=== PATIENT | female | born 1995 | race African-American/Black ===

== ENCOUNTER 2016-05-27 00:16 | Emergency (ER) | payer MEDICAID, OTHER ==
[2016-05-27] VITALS (8 sets, daily range): BP systolic 86–114; BP diastolic 51–68; PULSE 90–116; RESP 14–16; TEMP 98.1; O2SAT 95–97
[~2016-05-27] VITALS: Ht 154.9 cm; Wt 54.0 kg
[2016-05-27] MEDS ORDERED: prenatal vitamin PO (05:56)
[2016-05-27 06:08] LABS: MEAN CORPUSCULAR HGB CONC 36.2 % (32.0-36.0)
[2016-05-27] MEDS ORDERED: SODIUM CHLOR 0.9% 1000 ML INJ 1,000 ML IV ONE ×3 (06:15→08:00)
[2016-05-27 06:22] LABS: AUTOMATED NEUTROPHIL # 4.2 TH/MM3 (1.8-7.7); BASOPHIL % 0.2 % (0.0-2.0); EOSINOPHIL % 0.6 % (0.0-4.0); HEMATOCRIT 40.6 % (35.0-46.0); LYMPH % 32.3 % (9.0-44.0); LYMPHOCYTE # 2.5 TH/MM3 (1.0-4.8); MEAN CORPUSCULAR HEMOGLOBIN 31.2 PG (27.0-34.0); MONO % 12.5 % (0.0-8.0); NEUT % 54.4 % (16.0-70.0); PLATELET COUNT 244 TH/MM3 (150-450); RED BLOOD COUNT 4.72 MIL/MM3 (4.00-5.30); RED CELL DISTRIBUTION WIDTH 12.5 % (11.6-17.2); WHITE BLOOD COUNT 7.6 TH/MM3 (4.0-11.0)
[2016-05-27 06:26] LABS: HEMO FLAGS AUTO DIFF
[2016-05-27 06:52] LABS: SCAN/DIFF AUTO DIFF CONFIRMED
[2016-05-27 07:02] LABS: ANION GAP 13 MEQ/L (5-15); AST (GOT) 23 U/L (16-38); BICARBONATE 22.3 MEQ/L (21.0-32.0); BLOOD UREA NITROGEN 10 MG/DL (7-18); CHLORIDE 97 MEQ/L (98-107); GLOMERULAR FILTRATION RATE 117 ML/MIN (>89); POTASSIUM 3.5 MEQ/L (3.5-5.1); SODIUM (NA) 132 MEQ/L (136-145)
[2016-05-27 07:03] LABS: ALKALINE PHOSPHATASE 73 U/L (45-117); ALT (GPT) 36 U/L (9-42); BETA HCG QUANT 71410 MIU/ML (0-5); TOTAL BILIRUBIN ADULT 1.9 MG/DL (0.2-1.0)
--- NOTE | 2016-05-27 07:03 | PD ---
HPI Chief Complaint: Related Problem Time Seen by Provider: 06:05 Travel History International Travel<30 days: No Contact w/Intl Traveler<30days: No Traveled to known affect area: No History of Present Illness HPI 21 year-old female presents to the emergency department by private transportation for daily nausea and vomiting over the past 4-5 weeks. Patient estimates she is 10 weeks . Last menstrual period was March. Patient is 2 para 0 AB 1. Patient denies any abdominal pain pelvic pain vaginal discharge or vaginal bleeding dysuria frequency urgency or hematuria. Patient reports that she feels very dehydrated. Patient has followed up with local clinic but has not been yet seen by intraoperative neuro tech or an OB /BIG MACHINE CONSULTANT. Patient has been taking vitamins. Patient is at school here at the [employer] [facility] and plans to return to home in [place] in July and establishing with an EXHIBIT DESIGNER at that time. Patient has not visited the [facility] for evaluation. Patient was not given any medications for nausea vomiting at the local [facility]. Patient states she's been attempting to take sips of Gatorade and lynn bassem but continues to have vomiting. No hematemesis no coffee-ground emesis. No abdominal pain. No fever or chills. Patient does not know she's had any weight loss. PFSH Past Medical History Narrative Medical Ab1 no tobacco use nursing notes reviewed Medical History: Denies Significant Hx Immunizations Current: Yes Influenza Vaccination: No ?: LMP: 04/01/16 : 2 : 1 Past Surgical History Surgical History: No Previous Surgery Social History Alcohol Use: No Tobacco Use: No Substance Use: Yes Allergies-Medications (Allergen,Severity, Reaction): Coded Allergies: No Known Allergies (Unverified , 05/27/16) Reported Meds & Prescriptions Reported Meds & Active Scripts Active Reported [ vitamin] 1 Tab PO DAILY Review of Systems Except as stated in HPI: all other systems reviewed are Neg General / Constitutional: No: Fever, Chills Eyes: No: Visual changes HENT: Positive: Lightheadedness, No: Headaches Cardiovascular: No: Chest Pain or Discomfort Respiratory: No: Shortness of Breath Gastrointestinal: Positive: Nausea, Vomiting, No: Abdominal Pain, Hematemesis , Hematochezia Genitourinary: No: Dysuria Musculoskeletal: No: Myalgias, Arthralgias Skin: No Rash Neurologic: Positive: Dizziness, No: Weakness Psychiatric: No: Anxiety, Depression Hematologic/Lymphatic: No: Easy Bruising Physical Exam Narrative GENERAL: Well-developed well-nourished female in no acute distress no respiratory distress SKIN: Warm and dry. HEAD: Normocephalic. EYES: No scleral icterus. No injection or drainage. ENT: Mucous membranes dry NECK: Supple, trachea midline. No JVD or lymphadenopathy. CARDIOVASCULAR: Regular rate and rhythm without murmurs, gallops, or rubs. RESPIRATORY: Breath sounds equal bilaterally. No accessory muscle use. GASTROINTESTINAL: Abdomen soft, non-tender, nondistended. MUSCULOSKELETAL: No cyanosis, or edema. BACK: Nontender without obvious deformity. No CVA tenderness. Data Data Last Documented VS Vital Signs Date Time Temp Pulse Resp B/P Pulse Ox O2 Delivery O2 Flow Rate FiO2 05/27/16 06:04 91 14 100/68 95 Room Air 05/27/16 00:19 98.1 Orders Beta Hcg (Quant/Titer) (05/27/16 06:05) Complete Blood Count With Diff (05/27/16 06:05) Comprehensive Metabolic Panel (05/27/16 06:05) Complete Rh (05/27/16 06:05) Us Pelvis (Ques Pr/Ect)W Trans (05/27/16 ) Urinalysis - C+S If Indicated (05/27/16 06:05) Iv Access Insert/Monitor (05/27/16 06:05) Ed Urine Pregnancytest Poc (05/27/16 06:05) Sodium Chlor 0.9% 1000 Ml Inj (Ns 1000 M (05/27/16 06:15) Sodium Chlor 0.9% 1000 Ml Inj (Ns 1000 M (05/27/16 07:15) Labs Laboratory Tests Test 05/27/16 06:00 White Blood Count 7.6 TH/MM3 Red Blood Count 4.72 MIL/MM3 Hemoglobin 14.7 GM/DL Hematocrit 40.6 % Mean Corpuscular Volume 86.0 FL Mean Corpuscular Hemoglobin 31.2 PG Mean Corpuscular Hemoglobin 36.2 % Concent Red Cell Distribution Width 12.5 % Platelet Count 244 TH/MM3 Mean Platelet Volume 11.5 FL Neutrophils (%) (Auto) 54.4 % Lymphocytes (%) (Auto) 32.3 % Monocytes (%) (Auto) 12.5 % Eosinophils (%) (Auto) 0.6 % Basophils (%) (Auto) 0.2 % Neutrophils # (Auto) 4.2 TH/MM3 Lymphocytes # (Auto) 2.5 TH/MM3 Monocytes # (Auto) 1.0 TH/MM3 Eosinophils # (Auto) 0.0 TH/MM3 Basophils # (Auto) 0.0 TH/MM3 CBC Comment AUTO DIFF Differential Comment AUTO DIFF CONFIRMED Sodium Level 132 MEQ/L Potassium Level 3.5 MEQ/L Chloride Level 97 MEQ/L Carbon Dioxide Level 22.3 MEQ/L Anion Gap 13 MEQ/L Blood Urea Nitrogen 10 MG/DL Creatinine 0.76 MG/DL Estimat Glomerular Filtration 117 ML/MIN Rate Random Glucose 75 MG/DL Calcium Level 9.5 MG/DL Total Bilirubin 1.9 MG/DL Aspartate Amino Transf 23 U/L (AST/SGOT) Alanine Aminotransferase 36 U/L (ALT/SGPT) Alkaline Phosphatase 73 U/L Total Protein 9.5 GM/DL Albumin 4.2 GM/DL Human Chorionic Gonadotropin, 77018 MIU/ML Quant Blood Type AB POSITIVE Rho(D) Type POSITIVE MDM Medical Decision Making Medical Screen Exam Complete: Yes Emergency Medical Condition: Yes Medical Record Reviewed: Yes Interpretation(s) CBC with automated differential values grossly within normal limits [id number] hCG positive Differential Diagnosis Vomiting, hyperemesis gravidarum, , ectopic , electrolyte disturbance, dehydration Narrative Course IV access obtained patient administered 1 L normal saline specimens collected and sent for resulting; pelvic ultrasound ordered Patient receiving IV fluids keeping hypotensive blood pressure with normal heart rate range. Patient given additional liter of normal saline; urinalysis pending; chemistries pending; quantitative hCG pending @ 0700 sign over care to Lizzy Cornelius MD May 27, 2016 07:03
--- NOTE | 2016-05-27 08:01 | PD ---
Physical Exam Date Seen by Provider: May 27, 2016 Data Data Last Documented VS Vital Signs Date Time Temp Pulse Resp B/P Pulse Ox O2 Delivery O2 Flow Rate FiO2 05/27/16 08:00 96 16 89/56 97 Room Air 05/27/16 00:19 98.1 Orders Beta Hcg (Quant/Titer) (05/27/16 06:05) Complete Blood Count With Diff (05/27/16 06:05) Comprehensive Metabolic Panel (05/27/16 06:05) Complete Rh (05/27/16 06:05) Urinalysis - C+S If Indicated (05/27/16 06:05) Iv Access Insert/Monitor (05/27/16 06:05) Ed Urine Pregnancytest Poc (05/27/16 06:05) Sodium Chlor 0.9% 1000 Ml Inj (Ns 1000 M (05/27/16 06:15) Sodium Chlor 0.9% 1000 Ml Inj (Ns 1000 M (05/27/16 07:15) Sodium Chlor 0.9% 1000 Ml Inj (Ns 1000 M (05/27/16 08:00) Us Pelvis (Ques Preg/Ectopic) (05/27/16 ) Urine Culture (05/27/16 12:20) Ceftriaxone Inj (Rocephin Inj) (05/27/16 13:15) Labs Laboratory Tests Test 05/27/16 05/27/16 06:00 12:20 White Blood Count 7.6 TH/MM3 Red Blood Count 4.72 MIL/MM3 Hemoglobin 14.7 GM/DL Hematocrit 40.6 % Mean Corpuscular Volume 86.0 FL Mean Corpuscular Hemoglobin 31.2 PG Mean Corpuscular Hemoglobin 36.2 % Concent Red Cell Distribution Width 12.5 % Platelet Count 244 TH/MM3 Mean Platelet Volume 11.5 FL Neutrophils (%) (Auto) 54.4 % Lymphocytes (%) (Auto) 32.3 % Monocytes (%) (Auto) 12.5 % Eosinophils (%) (Auto) 0.6 % Basophils (%) (Auto) 0.2 % Neutrophils # (Auto) 4.2 TH/MM3 Lymphocytes # (Auto) 2.5 TH/MM3 Monocytes # (Auto) 1.0 TH/MM3 Eosinophils # (Auto) 0.0 TH/MM3 Basophils # (Auto) 0.0 TH/MM3 CBC Comment AUTO DIFF Differential Comment AUTO DIFF CONFIRMED Sodium Level 132 MEQ/L Potassium Level 3.5 MEQ/L Chloride Level 97 MEQ/L Carbon Dioxide Level 22.3 MEQ/L Anion Gap 13 MEQ/L Blood Urea Nitrogen 10 MG/DL Creatinine 0.76 MG/DL Estimat Glomerular Filtration 117 ML/MIN Rate Random Glucose 75 MG/DL Calcium Level 9.5 MG/DL Total Bilirubin 1.9 MG/DL Aspartate Amino Transf 23 U/L (AST/SGOT) Alanine Aminotransferase 36 U/L (ALT/SGPT) Alkaline Phosphatase 73 U/L Total Protein 9.5 GM/DL Albumin 4.2 GM/DL Human Chorionic Gonadotropin, 00996 MIU/ML Quant Blood Type AB POSITIVE Rho(D) Type POSITIVE Urine Color YELLOW Urine Turbidity HAZY Urine pH 5.5 Urine Specific [place] 1.023 Urine Protein 30 mg/dL Urine Glucose (UA) NEG mg/dL Urine Ketones 150 mg/dL Urine Occult Blood NEG Urine Nitrite NEG Urine Bilirubin NEG Urine Urobilinogen LESS THAN 2.0 MG/DL Urine Leukocyte Esterase MOD Urine RBC 3 /hpf Urine WBC 9 /hpf Urine Squamous Epithelial 2 /hpf Cells Urine Bacteria MOD /hpf Urine Hyaline Casts 2 /lpf Urine Mucus FEW /lpf Microscopic Urinalysis Comment CULTURE INDICATED MDM Medical Record Reviewed: Yes Supervised Visit with BELEN: No Interpretation(s) Vital Signs Date Time Temp Pulse Resp B/P Pulse Ox O2 Delivery O2 Flow Rate FiO2 05/27/16 06:04 91 14 100/68 95 Room Air 05/27/16 00:19 98.1 116 16 99/55 96 Room Air Differential Diagnosis Hyperemesis gravidarum, electrolyte abnormality, threatened miscarriage Narrative Course Patient was signed out to me by Dr. Lopes at change of shift, please refer to previous provider chart Patient is a 21 year old female who is G2, P0, Ab1, presents to emergency room for evaluation of intractable nausea and vomiting. Patient reports that she feels very dehydrated, reports that she is unable to tolerate any fluids at this time. While in the emergency room, patient received 2 L of IV fluids, patient is currently receiving her third liter of IV fluid. Patient reports that she is feeling much better. Patient reports near resolution of her nausea. Abdomen is soft, nontender, nondistended, no peritoneal signs at this time. Patient denies any vaginal bleeding or vaginal discharge at this time. cbc: WBC 7.6 Hemoglobin 14.7 Hematocrit 40.6 Platelets 244 BMP Sodium 132 Chloride 97 Potassium 3.5 BUN 10 Creatinine 0.76 AST 23 ALT 36 t bili 1.9 Alkaline phosphatase 73 HCG Quant 71,410 UA and pelvic US pending Last Impressions Pelvis Ultrasound 05/27/16 0000 Signed Impressions: Service Date/Time: May 09:01 - CONCLUSION: Positive intrauterine gestational sac with a questionable small area of subchorionic hemorrhage. Dipak Pineda MD UA positive for moderately esterase, positive from moderate bacteria, will treat for urinary tract infection. Patient reevaluated, patient feeling much better. I reviewed all labs and all studies with patient in detail. Encouraged pelvic rest at this time until she is seen and cleared by her TRANSPORTATION SECURITY OFFICER. A copy of her ultrasound report was given to her so she can follow up with her dredging inspector. Signs and symptoms of when to return to emergency room reviewed patient in detail. Patient will follow up with cultures from today. Diagnosis Primary Impression: Hyperemesis gravidarum Additional Impressions: Hyponatremia Subchorionic hematoma in first trimester UTI (urinary tract infection) Qualified Code: N30.01 - Acute cystitis with hematuria Patient Instructions: General Instructions Additional Instruction: Please provide patient with a copy of her labs and ultrasound report at discharge Please follow-up with your TRANSPORTATION SECURITY OFFICER as scheduled, please bring your lab work as well as ultrasound reports to your doctor's office for follow-up Pelvic rest until seen and cleared by your TRANSPORTATION SECURITY OFFICER Please return to the emergency room if your symptoms return or worsen Please follow-up with all cultures from today Med/Other Pt SpecificInfo: No Change to Meds Scripts Nitrofurantoin Monohydrate Macrocrystals (Macrobid)100 Mg Vcy684 Mg PO BID 10 Days Ref 0 Prov:Renetta Roy DO 05/27/16 Disposition: 01 DISCHARGE HOME Condition: Stable Renetta Roy DO May 27, 2016 08:00
--- NOTE | 2016-05-27 09:46 | RADRPT ---
EXAM DATE/TIME: 05/27/2016 09:01 [place] COMPARISON: No previous studies available for comparison. INDICATIONS : Vomiting with . LAB(S): Beta-hC,410 MEDICAL HISTORY : . SURGICAL HISTORY : None. ENCOUNTER: Initial ACUITY: 1 day PAIN SCORE: 0/10 LOCATION: Bilateral pelvis MEASUREMENTS: UTERUS: 11.2 x 6.6 x 8.0 cm ENDOMETRIAL STRIPE: >20 mm RIGHT OVARY: 3.1 x 2.1 x 2.1 cm LEFT OVARY: 4.0 x 2.6 x 2.8 cm FINDINGS: UTERUS: The myometrium has homogeneous echotexture without mass. Intrauterine tube with 4 x 2.5 x 2.1 cm gest ational sac corresponds with 7 week gestation. 7 mm crown-rump length corresponds with 6 weeks 4 day gestation. 1.5 x 0.2 x 1.6 cm hypoechoic collection around the gestational sac may be a small subchor ionic hemorrhage RIGHT OVARY: Ovary contains no mass or significant cystic lesion. LEFT OVARY: Ovary contains no mass or significant cystic lesion. MISCELLANEOUS: Trace free fluid. CONCLUSION: Positive intrauterine gestational sac with a questionable small area of subchorionic hemorrhage. Dipak Pineda MD on May 27, 2016 at 9:43 Board Certified Radiologist. This report was verified electronically.
[2016-05-27 13:04] LABS: BACTERIA, URINE MOD /hpf; BLOOD, URINE NEG (NEG); COMMENT (UR) CULTURE INDICATED; CULTURE IF INDICATED CULTURE INDICATED; GLUCOSE,URINE NEG (NEG); HYALINE CAST, URINE 2 /lpf (RARE); KETONE, URINE 150 mg/dL (NEG); MUCUS URINE FEW /lpf (OCC); NITRITE,URINE NEG (NEG); PH, URINE 5.5 (5.0-8.5); SQUAMOUS EPITHELIAL CELL URINE 2 /hpf (0-5); URINE COLOR YELLOW (YELLW/STRAW)
[2016-05-27] MEDS ORDERED: cefTRIAXone INJ 1,000 MG in SODIUM CHLORIDE 0.9% INJ 100 ML IV ONE (13:15)
[2016-05-27] MEDS ORDERED: MACR100C2 PO (13:23)
[2016-06-24] MEDS ORDERED: NITR1CAP36 PO (15:42)
[2016-06-24] MEDS ORDERED: PREN1CHW7 PO (15:42)
== END 2016-05-27 14:31 | disposition home or self-care (01) ==
LOC: NEPC 00:16
DX: O21.0 Mild hyperemesis gravidarum (principal); E87.1 Hypo-osmolality and hyponatremia; O23.11 Infections of bladder in pregnancy, first trimester; B96.89 Other specified bacterial agents as the cause of diseases classified elsewhere; Z3A.10 10 weeks gestation of pregnancy
CPT/HCPCS: 76700; 80053; 81001; 84702; 84703; 85025; 86901; 87086; 96361; 96374; 99284; J0696; J7030